=== PATIENT | male | born 1940 | race Caucasian/White ===

== ENCOUNTER 2021-06-02 11:30 | Day surgery (SDC) | payer MEDICARE ==
[~2021-06-02 11:30] MED LIST: ASPI81CH PO; BUSP5 PO; HYDHCL25 PO; Hydroxyzine HCl50 MG PO; MELATONIN10 M6 PO; METO25 PO; METO25ER PO; METOPROLOL SUCCINATE PO; PAROXETINE PO; XARELTO20 M1 PO
[2021-06-02] MEDS ORDERED: Flecainide Acet50 MG PO (12:35)
--- NOTE | 2021-06-02 14:17 | NUR ---
PT ABLE TO DRESS SELF WITH NO COMPLICATIONS. PT AOX4. DENIES ANY PAIN. PT BP STAYED ABOVE 100 SYSTOLIC [id number]. PT WAS ABLE TO DRINK WATER AND EAT A BANANA. HR BETWEEN 40'S-MID 60'S AND AT TIMES 70-80. PT DENIES ANY DIZZINESS OR NAUSEA. IV DCD WITH CATH INTACT. PT TAKEN TO EXIT VIA WHEELCHAIR WHERE FAMILY WAS WAITING WITH VEHICLE. NEW RX CALLED INTO PHARMACY.
== END 2021-06-02 23:17 | disposition home or self-care (01) ==
LOC: MHTC 11:30
DX: I48.0 Paroxysmal atrial fibrillation (principal)
CPT/HCPCS: 92960; 93005; 93010; J1742; J2704; J7030

== ENCOUNTER 2021-10-11 13:52 | Inpatient (IN) | payer MEDICARE ==
[~2021-10-11] VITALS: Ht 188 cm; Wt 54.0 kg
[~2021-10-11 13:52] MED LIST changes: +Flecainide Acet50 MG PO
[2021-10-11 14:51] LABS: BASOPHILS ABSOLUTE AUTO 0.03 K/mm3 (0.00-0.23); BASOPHILS PERCENT AUTO 0 % (0-2); EOSINOPHILS ABSOLUTE AUTO 0.02 K/mm3 (0.00-0.68); EOSINOPHILS PERCENT AUTO 0 % (0-6); Hematocrit 43.3 % (37.0-53.0); Hemoglobin 14.1 g/dL (13.5-17.5); IMMATURE GRAN ABSOLUTE AUTO 0.02 K/mm3 (0.00-0.10); IMMATURE GRAN PERCENT AUTO 0 % (0-1); LYMPHOCYTES ABSOLUTE AUTO 0.52 K/mm3 (0.84-5.20); LYMPHOCYTES PERCENT AUTO 7 % (21-46); MONOCYTES ABSOLUTE AUTO 0.41 K/mm3 (0.16-1.47); MONOCYTES PERCENT AUTO 5 % (4-13); Mean Corpuscular HGB 32.9 pg (26.0-34.0); Mean Corpuscular HGB Conc 32.6 g/dL (31.5-36.5); Mean Corpuscular Volume 101 fL (80-100); Mean Platelet Volume 9.2 fL (9.1-12.4); NEUTROPHILS ABSOLUTE AUTO 6.59 K/mm3 (1.96-9.15); NEUTROPHILS PERCENT AUTO 87 % (41-73); Platelet Count 239 K/mm3 (150-400); RDW Coefficient Variation 15.2 % (11.7-14.2); RDW Standard Deviation 55.8 fL (35.1-46.3); Red Blood Cell Count 4.29 M/mm3 (4.30-5.90); White Blood Cell Count 7.59 K/mm3 (4.00-11.30)
[2021-10-11] MEDS ORDERED: DONEPEZIL HCL5 M2 PO (15:01)
[2021-10-11] MEDS ORDERED: MEMANTINE HCL PO (15:02)
[2021-10-11] MEDS ORDERED: REMERON15 M9 PO (15:03)
[2021-10-11] MEDS ORDERED: ZOLOFT25 MG PO (15:03)
[2021-10-11] MEDS ORDERED: MELA3 PO (15:05)
[2021-10-11 15:20] LABS: Albumin, Blood 3.4 g/dL (3.4-5.0); Bilirubin, Total 1.7 mg/dL (0.1-1.0); Bun/Creatinine Ratio 31.4 (12.0-20.0); Calcium, Blood 9.7 mg/dL (8.5-10.1); Creatinine, Blood 1.02 mg/dL (0.60-1.20); Globulin, Blood 3.4 g/dL (2.2-4.0); Potassium, Blood 3.5 mmol/L (3.5-5.5); Total Protein, Blood 6.8 g/dL (6.4-8.2)
[2021-10-11 15:29] LABS: PCO2 Arterial 36.2 mmHg (35-45); PO2 Arterial 86.4 mmHg (80-100); pH Blood Arterial 7.48 (7.35-7.45)
[2021-10-11 15:54] LABS: Influenza A, PCR NEGATIVE (NEGATIVE); Influenza B, PCR NEGATIVE (NEGATIVE); Resp Syncytial Virus, PCR NEGATIVE (NEGATIVE); SARS-Cov-2 (COVID-19) PCR, MMC NEGATIVE (NEGATIVE)
[2021-10-12 04:33] LABS: BASOPHILS ABSOLUTE AUTO 0.04 K/mm3 (0.00-0.23); BASOPHILS PERCENT AUTO 1 % (0-2); EOSINOPHILS ABSOLUTE AUTO 0.04 K/mm3 (0.00-0.68); EOSINOPHILS PERCENT AUTO 1 % (0-6); Hematocrit 42.9 % (37.0-53.0); Hemoglobin 14.1 g/dL (13.5-17.5); IMMATURE GRAN ABSOLUTE AUTO 0.03 K/mm3 (0.00-0.10); IMMATURE GRAN PERCENT AUTO 0 % (0-1); LYMPHOCYTES ABSOLUTE AUTO 0.75 K/mm3 (0.84-5.20); LYMPHOCYTES PERCENT AUTO 10 % (21-46); MONOCYTES ABSOLUTE AUTO 0.62 K/mm3 (0.16-1.47); MONOCYTES PERCENT AUTO 8 % (4-13); Mean Corpuscular HGB 33.4 pg (26.0-34.0); Mean Corpuscular HGB Conc 32.9 g/dL (31.5-36.5); Mean Corpuscular Volume 102 fL (80-100); Mean Platelet Volume 9.8 fL (9.1-12.4); NEUTROPHILS ABSOLUTE AUTO 6.22 K/mm3 (1.96-9.15); NEUTROPHILS PERCENT AUTO 81 % (41-73); Platelet Count 154 K/mm3 (150-400); RDW Coefficient Variation 15.2 % (11.7-14.2); RDW Standard Deviation 55.7 fL (35.1-46.3); Red Blood Cell Count 4.22 M/mm3 (4.30-5.90)
[2021-10-12 04:43] LABS: Albumin, Blood 2.9 g/dL (3.4-5.0); Bilirubin, Total 1.3 mg/dL (0.1-1.0); Bun/Creatinine Ratio 33.9 (12.0-20.0); Calcium, Blood 8.9 mg/dL (8.5-10.1); Creatinine, Blood 0.77 mg/dL (0.60-1.20); Potassium, Blood 3.4 mmol/L (3.5-5.5); Total Protein, Blood 5.9 g/dL (6.4-8.2)
--- NOTE | 2021-10-12 06:07 | NUR ---
PT. WAS BROUGHT IN OVER NIGHT FOR A BOWEL OBSTRUCTION OF 9CM. AN ATTEMPT TO DISIMPACT WAS MADE IN THE ER, BUT WAS NOT SUCCESSFUL. PT. WAS BROUGHT UP BLEEDING FROM THE ANUS AND CONTINUED TO BLEED UNTIL THIS AM. EBL OF 15-20 ML. OTHERWISE, PT. HAS NO COMPLAINTS. BP HAS BEEN WNL AND HR IS TACHY INTO THE LOW 100S WITH AFIB AT BASELINE. PT. BREATHING WELL ON RA AND IS ABLE TO USE URINAL WITH ASSISTANCE. BOWEL REGIMEN HAS BEEN INITIATED AND PT. IS RESTING COMFORTABLY AT THIS TIME.
--- NOTE | 2021-10-12 12:03 | NUR ---
0800 TO NOON CARE AND TREATMENT PATIENT HAS BEEN UP TO BEDSIDE COMMODE TODAY ONE TIME WITH TWO PERSON ASSIST. HE IS VERY FRAILE AND SKIN HANGING OFF HIS PROTRUDING BONES. HE IS ENCOURAGED TO EAT AND DRINK FLUIDS, HOWEVER LUNCH IS HELD DUE TO A BEDSIDE U/S TO BE COMPLETED BY 1400 TODAY. HE IS VERY ANXIOUS AND TEARFUL THIS AFTERNOON DUE TO THE ENEMA THAT WAS DONE AND SOME DIGITAL EXTRATION THAT WAS COMPLETED WITH SMALL RESULTS. THE STOOL IS BROWN, SOFT/NUPUR POST ENEMA HOWEVER IT IS STILL VERY PAINFUL FOR HIM TO PASS ON HIS OWN. HIS D51/2NS IS GOING AT 100ML/HR TO HIS ONE PIV. SYSTOLIC BP LOW S/P AM MEDICATION HOWEVER HIS PULSE REMAINS AFIB LOW 100'S AND HIS MAP REMAINS GREATER THAN 65. HE IS ALERT TO SELF, SITUATION, PLACE, AND MONTH JUST NOT DATE. HIS WAS BROUGHT IN BY HIS SISTER AND SHE HAS DEMENTIA PER SISTER AND NIECE WHO CALLED THIS AM AND GOT AN UPDATE. PERMISSION GRANTED BY PATIENT WHO HANDED THE PHONE TO THE NURSE. ENCOURAGING SISTER TO NOT LEAVE HERE AT THE HOSPITAL WITHOUT ASSITANCE FROM HER. WILL CONTINUE TO FOLLOW UP CARE THROUGHOUT THE DAY.
--- NOTE | 2021-10-12 17:40 | NUR ---
END OF SHIFT PROGRESS NOTE PATIENT HAS BEEN RESTING SINCE THE ULTRASOUND OF HIS LIVER, AWAITING RESULTS TO BE DICTATED. PATIENT HAS TO BE ENCOURAGED TO EAT AND DRINK. HE STATES "IT GOES DOWN THE WRONG WAY" HOWEVER HE DOES NOT COUGH OR CHOKE ON HIS FOOD. HE STATES "THERE IS NO MORE ROOM". HE HAD THE ENEMA TODAY WITH VERY LITTLE RESULTS TO FOLLOW AND HE WAS IN A LOT OF PAIN WHEN DIGITALLY EXTRACTED. HIS BP HAS BEEN SOFT ALL DAY AND SO HIS IV FLUIDS ARE NOW D5 1/4 NS AT 150/HR. 1/4 NS BECAUSE HIS SODIUM LEVELS WERE ELEVATED TO 152 THIS AM. HE HAS VOIDED IN HIS BRIEF TWICE TODAY. HE STOOD AND TOOK 10 STEPS BY BEDSIDE IN ROOM BUT WAS DIZZY AND SO LAID BACK IN BED AFTERWARD. WAS UPDATED THIS AFTERNOON OF HOW HE IS DOING. WILL GIVE REPORT TO NEXT SHIFT.
[2021-10-12 19:46] LABS: Bun/Creatinine Ratio 31.5 (12.0-20.0); Calcium, Blood 8.8 mg/dL (8.5-10.1); Creatinine, Blood 0.73 mg/dL (0.60-1.20); Potassium, Blood 3.7 mmol/L (3.5-5.5)
[2021-10-13 04:48] LABS: Calcium, Blood 8.3 mg/dL (8.5-10.1); Creatinine, Blood 0.64 mg/dL (0.60-1.20)
--- NOTE | 2021-10-13 05:37 | NUR ---
SHIFT SUMMARY PT RESTED WELL THROUGH THE NIGHT. ALERT TO SELF. ABLE TO MAKE NEEDS KNOWN. COOPERATIVE WITH PLAN OF CARE. SATS >95% ON ROOM AIR. TELE READS AFIB, RATE 80-90. PT IS SLIGHTLY ANXIOUS AND INTERMITTENTLY CONFUSED. SLOW TO RESPOND. CONSTIPATION IS RESOLVING SOME. RECEIVING ENEMAS, LAXATIVES, SOFTENERS - HAD TWO BM'S LAST NIGHT. VOIDED X2. VSS, BP REMAINS LOW, BUT STABLE. INSTRUCTED TO GIVE 500ML BOLUS OVER 2 HRS, AND THEN MAINTENANCE FLUIDS @150/HR. MAP CONSISTENTLY 60-70. DENIES CHEST PAIN. AM LABS, SODIUM IMPROVED TO 143. CALL LIGHT WITHIN REACH, BED IN LOWEST POSITION. WILL CONTINUE TO MONITOR.
--- NOTE | 2021-10-13 15:09 | NUR ---
UPDATE PT ATTEMPTED TO SIT ON COMMODE FOR APPROXIMATELY 30 MINUTES WITH NO SUCCESS. A SOAP SUDS ENEMA WAS ADMINISTERED. PT WAS STILL UNABLE TO PASS STOOL AND A DIGITAL EXTRACTION OF STOOL IMPACTION WAS PERFORMED. A LARGE QUANTITY OF DARK BROWN STOOL WAS REMOVED, INITIALLY STOOL WAS FIRM/FORMED AND THIS WAS FOLLOWED BY HARD STOOLS. MORE STOOL WAS EVIDENT BY PALPATION, HOWEVER THE PT WOULD NOT TOLERATE CONTINUED DIGITAL EXTRACTION.
--- NOTE | 2021-10-13 17:55 | NUR ---
SHIFT SUMMARY PT HAS BEEN RESTING IN BED THROUGHOUT THE DAY. PT REQUIRED LOTS OF COACHING TO TAKE PO MEDS THIS AM OVER THE COURSE OF TWO HOURS, PT WOULD TAKE ONE PILL THEN SPEND TEN TO FIFTEEN MINUTES COMMENTING OVER "WASTING ALL OF THE RESOURCES" ON THEM. AT EVERY ENCOUNTER PT HAS BECOME AGITATED ABOUT "WASTING WATER" TO THE POINT OF TEARS. SBP HAS SLOWLY FALLEN THROUGHOUT THE DAY FROM 119 THIS AM TO 90 THIS EVENING, HEART RATE HAS STAYED CONSISTENT IN THE 120'S.
[2021-10-14 04:26] LABS: Hematocrit 38.2 % (37.0-53.0); Hemoglobin 12.9 g/dL (13.5-17.5); Mean Corpuscular HGB 33.4 pg (26.0-34.0); Mean Corpuscular HGB Conc 33.8 g/dL (31.5-36.5); Mean Corpuscular Volume 99 fL (80-100); Mean Platelet Volume 9.9 fL (9.1-12.4); Platelet Count 191 K/mm3 (150-400); RDW Coefficient Variation 14.8 % (11.7-14.2); RDW Standard Deviation 53.7 fL (35.1-46.3); Red Blood Cell Count 3.86 M/mm3 (4.30-5.90); White Blood Cell Count 5.81 K/mm3 (4.00-11.30)
--- NOTE | 2021-10-14 04:40 | NUR ---
shift summary pt rested well through the night. alert to self. cooperative with plan of care. able to make needs known. sats >95% on room air. tele reads afib - rate 80-90's most of night, occasionally up to 120's at times. no c/o chest pain. stand by assist to bathroom to void, have another bm. pt has been having more frequent bm's during admission, seems to be getting back to baseline. plans for dc to snf at time of dc, but patient is stable at this point. vss - bp remains low still, but stable. call light within reach, bed in lowest position. will continue to monitor.
[2021-10-14 04:45] LABS: Bun/Creatinine Ratio 22.4 (12.0-20.0); Calcium, Blood 8.7 mg/dL (8.5-10.1); Creatinine, Blood 0.81 mg/dL (0.60-1.20)
--- NOTE | 2021-10-14 17:10 | NUR ---
SHIFT SUMMARY PT HAS BEEN RESTING QUIETLY IN ROOM. PT WAS MORE COOPERATIVE ABOUT TAKING MEDICATIONS TODAY. PT WAS NOT COOPERATIVE ABOUT ATTEMPTING A BOWEL MOVEMENT. PT CONTINUES TO PERSEVERATE OVER WATER USAGE AND BECOMES EMOTIONAL WHEN THINKING ABOUT "ALL THE RESOURCES" THEY ARE USING. ALL VITAL SIGNS STABLE, NO ACUTE CHANGES IN CONDITION.
--- NOTE | 2021-10-15 05:10 | NUR ---
SHIFT SUMMARY NO ACUTE CHANGES THIS SHIFT. VSS. ALERT, DEMENTED. ANXIOUS ABOUT MEDICATIONS, CONSERVING WATER, ETC HAS BEEN PT'S TYPICAL RESPONSES. PT HAD 1 SMALL SMEAR BM THIS SHIFT. GOT UP TO BSC BUT NOT ABLE TO HAVE ANY MORE BM BEYOND THIS. VOIDED INTO BSC. OTHERWISE, PT RESTING T/O SHIFT. BEING REPOSITIONED BY STAFF. IN AFLUTTER 100'S TO 120'S. BED ALARM IN PLACE.
--- NOTE | 2021-10-15 06:16 | NUR ---
PT ARRIVES TO FLOOR FROM PCU AT 0600 HRS. PT IS ALERT TO SELF AND PLACE ONLY. PT HAS BASELINE DEMENTIA, REPORTED THAT THEY HAVE A CONCERN ABOUT WASTE. PT HAS CALL LIGHT WITHIN REACH, BED IS LOW AND LOCKED.
--- NOTE | 2021-10-15 06:18 | NUR ---
TRANSFER 0600 - TRANASFER TO MEDICAL FLOOR 301, REPORT GIVEN TO CYNTHIA Burris RN. VSS. ALL BELONGINGS WITH PT. STAFF IN ROOM UPON ARRIVAL.
--- NOTE | 2021-10-15 15:49 | NUR ---
Spiritual Care Visit. Pt. is sitting up in bed and welcomes my visit. Pt. is unsettled by the uncertainty of his bowel obstruction prognosis. Listen empathetically with a calming presence. Establish rapport. Pt. verbalized that his family had just visited him. Pt. displayed evidence of trust and hope. Prayed with Pt. Pt. verbalized gratitude for the spiritual care visit.
--- NOTE | 2021-10-15 17:49 | NUR ---
SHIFT SUMMARY PT RESTING QUIETLY AT START OF SHIFT. WOKE EASILY FOR CARE. PT IS RELUCTANTLY COMPLIANT WITH EATING AND TAKING MEDICATIONS. PT NOT WANTING TO WASTE FOOD OR MEDICATIONS, BUT WANTING TO GIVE THEM AWAY. BOWEL CARE GIVEN AGAIN TODAY. PT NOT WANTING TO DRINK LACTULOSE THOUGH FOR FEAR OF BLOW OUT. SM SOFT INCONTINENT BM THIS AFTERNOON. FAMILY ALSO IN TODAY, THOUGH CALLED TO REPORT THEY WERE UP TO NO GOOD AND COULD NOT BE TRUSTED. FAMILY HERE TODAY STATED THEY WERE PT'S SISTER AND RANCHO BENAVIDEZ. [facility] [place] [facility] AND TO FOLLOW WITH DIFFERENT FAMILY, NESTOR. PT OOB WITH P/T TODAY, WALKING IN RM AND THEN SITTING IN CHAIR FOR A COUPLE OF HOURS. PT SITTING UP EATING DINNER AT THIS TIME. DENIES FURTHER NEEDS. CALL LT IN REACH.
--- NOTE | 2021-10-15 21:19 | NUR ---
REVIEWED EACH EVENING MEDICATION WITH PT - PT ANXIOUS ABOUT TAKING HIS MEDICATIONS, REPORTED CONCERN ABOUT TAKING MOM, HE MAY HAVE AN ACCIDENT IN THE BED. PT DID REPORT HE "IS BACKED UP" AND WITH FURTHER INSTRUCTION ABOUT MOM, AND THAT STAFF ARE HERE FOR HIM, HE TOOK THE MOM. CALL LIGHT WITHIN REACH. BED IN LOW POSITION. FLUIDS AT BEDSIDE. PT CONTINUES ALERT AND ORIENTED X3, BUT IS OCCASIONALLY FORGETFUL.
[2021-10-15] MEDS ORDERED: QUETIAPINE FUMA25 MG PO (22:53)
--- NOTE | 2021-10-16 02:13 | NUR ---
PT WITH HIGH LEVEL OF ANXIETY REGARDING URINATION, WET GOWN - ATTEMPTED TO COMFORT PT, HIS CONCERN IS FOR STAFF AND HIS EMBARRASSMENT. BLE COLD TO TOUCH - RLE IS DISCOLORED, PT REPORTS HE "HAS POOR CIRCULATION", ASKED IF SAW THIS WHEN HE WAS ADMITTED, PT SAID "YES." I WILL REVIEW NOTES.
--- NOTE | 2021-10-16 02:29 | NUR ---
DOPPLER TO BLE, PEDAL PULSES PRESENT WITH DOPPLER BILATERALLY.
--- NOTE | 2021-10-16 04:35 | NUR ---
SHIFT SUMMARY - I SPOKE TO ABDON IBARRA REGARDING PT'S BLE DISCOLORATION. ABDON IBARRA VISUALIZED PT'S BLE DISCOLORATION TO FEET - I REPORTED PT PULSES PRESENT BILATERALLY WITH DOPPLER. PT ALSO REPORTED NUMBNESS TO RLE, BUT HE REPORTED THIS HAS BEEN THIS WAY SINCE MAY OF THIS YEAR. PT REPORTS HE HAS FOLLOWED UP WITH [facility] IN THE PAST FOR POOR CIRCULATION, AND REPORTED "POOR CIRCULATION DUE TO AFIB." I WILL REPORT THIS INFORMATION TO THE ONCOMING SHIFT. PT HAS EPISODES OF ANXIETY WITH ANY INTERVENTION. PT HAD A SMEAR OF A SOFT BROWN BM - PT DID TAKE HIS MOM LAST NIGHT. WILL CONTINUE TO MONITOR UNTIL AM SHIFT CHANGE. CALL LIGHT WITHIN REACH. BED IN LOW POSITION. BED ALARM ON FOR PT SAFETY. FLUIDS AT BEDSIDE.
--- NOTE | 2021-10-16 16:08 | NUR ---
DAY SHIFT SUMMARY 81 YR OLD MALE PT WITH HYPOXIA AND BOWEL IMPACTION. PT IS FORGETFUL AND ANXIOUS. SEVERE ANXIETY OVER MEDICATIONS. PT STATES HE DOES NOT THINK ANYTHING REACHES HIS STOMACH AND FEARS SWOLLOWING. PT ALSO HAS ANXIETY WITH MEDS THROUGH IV STATING HE DOES NOT THINK IT GOES THROUGH. PT WITH ANXIETY OVER COST OF ALL SERVICES AND DID NOT WANT SHEETS CHANGED HE FEARED HE WOULD BE CHARGED FOR CLEAN SHEETS. HAS CALLED SEVERAL TIMES THIS SHIFT WANTING UPDATES, SEEMS TO NOT REMEMBER THAT SHE HAS PREVIOUSLY CALLED. PT IS ON RA, WORKING WITH PT, ONE ASSIST WITH WALKER. LOWER EXTREMITIES DISCOLORED AND COOL, MD AWARE. HR IN 130-150 RANGE, MD AWARE. PT FEARFUL OF MANY FOODS STATING MANY FOODS WILL KILL YOU AND ALSO FEARFUL THAT THERE IS A WATER SHORTAGE AND THE WATER WILL RUN OUT.
--- NOTE | 2021-10-17 04:01 | NUR ---
SHIFT SUMMARY A/O 2-3, FORGETUL. PT IS VERY ANXIOUS AND PARANOID IN REGARDS TO TAKING MEDICATIONS AND ALLOWING STAFF TO ASSIST WITH ADLS. INCONT, ATTENDS IN PLACE. TELE ST IN THE LOW 100S. DENIES CHEST PAIN/PRESSURE. 1 SMALL FORMED BM THIS SHIFT. VSS, NO ACUTE CHANGES AT THIS TIME. BED IN LOWEST POSITION WITH CALL LIGHT IN REACH. WILL CONTINUE TO MONITOR AND REPORT TO ONCOMING RN.
--- NOTE | 2021-10-17 16:55 | NUR ---
DAY SHIFT SUMMARY 81 YR OLD MALE WITH HYPOXIA. PLAN TO DISCHARGE TO LIVE WITH IN [place]. PT IS FORGETFUL WITH HIGH ANXIETY. PT ON RA AND TELE, TELE WITH AFIB AT 122, MD AWARE.CALL LIGHT WITHIN REACH. FREQUENT ROUNDING. ABLE TO AMBULATE WITH STANDBY ASSIST AND WALKER.
--- NOTE | 2021-10-18 04:51 | NUR ---
SHIFT SUMMARY A/O 2-3, 1P ASSIST TO BATHROOM. INCONT, ATTENDS IN PLACE. ANXIOUS/PARANOID, REFUSES MEDICATIONS. DENIES PAIN. TELE SR IN THE 90S. NO ACUTE CHANGES AT THIS TIME. BED IN LOWEST POSITION WITH CALL LIGHT IN REACH. WILL CONTINUE TO MONITOR AND REPORT TO ONCOMING RN.
[2021-10-18 08:56] LABS: Influenza A, PCR NEGATIVE (NEGATIVE); Influenza B, PCR NEGATIVE (NEGATIVE); Resp Syncytial Virus, PCR NEGATIVE (NEGATIVE); SARS-Cov-2 (COVID-19) PCR, MMC NEGATIVE (NEGATIVE)
[2021-10-18] MEDS ORDERED: BISA10S PR (12:24)
[2021-10-18] MEDS ORDERED: DOCUZEN 8.6-501 EACH PO (12:24)
[2021-10-18] MEDS ORDERED: DULCOLAX400 MG/5 M PO (12:25)
[2021-10-18] MEDS ORDERED: LACT10SY PO (12:25)
--- NOTE | 2021-10-18 13:49 | NUR ---
DISCHARGE SUMMARY PT [facility] [place] TO [facility] . BELONGINGS AND MEDICATIONS SENT WITH PATIENT. PT WENT BY [facility].
== END 2021-10-18 13:39 | disposition home health service (06) | DRG 640 ==
LOC: ER 13:52 → PCU 20:42 → ER 20:42 → PCU 20:42 → MEDS 10-15 05:50
PROVIDERS: Emergency Medicine; Family Medicine; Internal Medicine; Student in an Organized Health Care Education/Training Program; ADMIT Internal Medicine
DX: E86.0 Dehydration (principal); E43 Unspecified severe protein-calorie malnutrition; G92.8 Other toxic encephalopathy; I48.92 Unspecified atrial flutter; Z68.1 Body mass index [BMI] 19.9 or less, adult; I48.20 Chronic atrial fibrillation, unspecified; E87.0 Hyperosmolality and hypernatremia; Z20.822 Contact with and (suspected) exposure to COVID-19; F41.9 Anxiety disorder, unspecified; F03.90 Unspecified dementia, unspecified severity, without behavioral disturbance, psychotic disturbance, mood disturbance, and anxiety; K59.00 Constipation, unspecified; E86.1 Hypovolemia; I95.9 Hypotension, unspecified; I48.0 Paroxysmal atrial fibrillation; Z88.2 Allergy status to sulfonamides; Z79.01 Long term (current) use of anticoagulants; Z79.899 Other long term (current) drug therapy
CPT/HCPCS: 0241U; 36415; 36600; 51798; 71046; 74177; 76705; 80048; 80053; 82803; 83735; 84436; 84484; 85025; 85027; 93005; 93010; 96374-59; 96375; 97110; 97116; 97162; 99285-25; A9270; G0378; J2270; J2405; J2765; J7030; J7042; Q9967